=== PATIENT | female | born 1960 | race Caucasian/White ===

== ENCOUNTER → 2016-10-15 | Outpatient (CLI) | payer OTHER | LOC: HEART 5 11:21 | DX: G45.9 Transient cerebral ischemic attack, unspecified (principal); R55 Syncope and collapse; R42 Dizziness and giddiness; I10 Essential (primary) hypertension ==

== ENCOUNTER → 2016-12-03 | Outpatient (CLI) | payer OTHER | LOC: US 08:11 → MRI 09:00 | DX: G45.9 Transient cerebral ischemic attack, unspecified (principal) | CPT/HCPCS: 70544; 70551; 93880 ==

== ENCOUNTER → 2020-07-17 | Outpatient (CLI) | payer OTHER ==
[~2020-07-17] MED LIST: AMLODIPINE BESY10 MG PO; ASPIRIN EC81 MG PO; CARVEDILOL12.5 MG PO; FLAGYL500 MG PO; GABAPENTIN300 MG PO; HYDRALAZINE HCL50 MG PO; HYDROCHLOROTH12.5 MG PO; LEVAQUIN TAB 5500 MG PO; LEVAQUIN750 MG PO; LISINOPRIL40 MG PO; METFORMIN HCL1000 MG PO; NITROSTAT0.4 MG SL; PROTONIX40 MG PO; SIMVASTATIN40 MG PO; TYLENOL W/CODEIN1 E1 PO; VISTARIL25 MG PO; ZOFRAN ODT 4 MG4 MG GT; ZOFRAN4 MG PO
== END ==
LOC: EMI 09:40
DX: M54.5 Low back pain (principal); M51.26 Other intervertebral disc displacement, lumbar region; Q63.1 Lobulated, fused and horseshoe kidney
CPT/HCPCS: 72148

== ENCOUNTER 2020-10-27 13:19 | Emergency (ER) | payer OTHER ==
[~2020-10-27 13:19] MED LIST changes: -VISTARIL25 MG PO
[2020-10-27 14:16] LABS: RED BLOOD COUNT 4.9 M/UL (4.00-5.10); WHITE BLOOD COUNT 6.8 K/UL (4.5-11.0)
[2020-10-27 14:38] LABS: BUN/CREATININE RATIO 14 (0-10)
[2020-10-27] MEDS ORDERED: VISTARIL25 MG PO (14:51)
== END 2020-10-27 14:56 | disposition home or self-care (01) ==
LOC: ER1 13:19
PROVIDERS: Emergency Medicine
DX: R20.2 Paresthesia of skin (principal); J45.909 Unspecified asthma, uncomplicated; I10 Essential (primary) hypertension; Z88.2 Allergy status to sulfonamides
CPT/HCPCS: 70450; 71045; 80053; 82550; 82553; 83874; 84484; 85025; 85610; 85730; 93005; 99284

== ENCOUNTER → 2021-01-04 | Outpatient (CLI) | payer OTHER ==
[~2021-01-04] MED LIST changes: +VISTARIL25 MG PO
== END ==
LOC: LAB 08:33
DX: G51.4 Facial myokymia (principal); R20.0 Anesthesia of skin; G40.909 Epilepsy, unspecified, not intractable, without status epilepticus
CPT/HCPCS: 36415; 84443

== ENCOUNTER → 2021-12-19 | Outpatient (CLI) | payer OTHER ==
[2021-12-19 11:14] LABS: BUN/CREATININE RATIO 19 (0-10)
== END ==
LOC: LAB 09:22
PROVIDERS: Internal Medicine Cardiovascular Disease
DX: E78.5 Hyperlipidemia, unspecified (principal); I10 Essential (primary) hypertension; I20.9 Angina pectoris, unspecified; I49.5 Sick sinus syndrome; R00.0 Tachycardia, unspecified; R00.1 Bradycardia, unspecified; R00.2 Palpitations; R06.02 Shortness of breath
CPT/HCPCS: 36415; 80053; 80061; 84439; 84443; 84481